=== PATIENT | female | born 1985 | race Caucasian/White ===

== ENCOUNTER 2017-04-15 09:37 | Day surgery (SDC) | payer OTHER ==
[2017-04-13 15:54] VITALS: BMI 44.6
[2017-04-15] MEDS ORDERED: ACETAMINOPHEN 325 MG TABLET (FP) PO PRN (10:22)
[2017-04-15] MEDS ORDERED: oxyCODONE HCL 5 MG TABLET PO PRN (10:22)
[2017-04-15] MEDS ORDERED: IBUPROFEN 400 MG TABLET (FP) PO PRN (10:22)
--- NOTE | 2017-04-15 10:29 | HP ---
Admitting History and Physical - Admission History of Present Illness: 32 yo with hx/o menorrhagia, s/p novasure ablation 03/2014 Reports menses returned this year in December Has had heavy, irregular bleeding + Dysmenorrhea + dyspareunia History Source: Patient - Past Medical History Cardiovascular: Yes: Other (hx/o pericarditis) Pulmonary: Yes: Asthma Gastrointestinal: Yes: GERD ...LMP: 02/16/17 ...: No Heme/Onc: No: Anemia Rheumatology: Yes: Fibromyalgia, Lupus Endocrine: Yes: Hypothyroidism - Past Surgical History Past Surgical History: Yes: Additional Past Surgical History: D&C Endometrial Ablation Left breast cyst - Smoking History Smoking history: Never smoked Have you smoked in the past 12 months: No Aproximately how many cigarettes per day: 0 If you are a former smoker, when did you quit?: 6YRS AGO - Alcohol/Substance Use Hx Alcohol Use: No History of Substance Use: reports: None - Social History ADL: Independent History of Recent Travel: No Home Medications - Allergies Allergies/Adverse Reactions: Allergies Allergy/AdvReac Type Severity Reaction Status Date / Time shellfish derived Allergy Severe Swelling Verified 08/09/16 17:01 ibuprofen [From Motrin] Allergy Mild Swelling Verified 08/09/16 17:01 codeine Allergy Hives Verified 08/09/16 17:01 - Home Medications Home Medications: Ambulatory Orders Colchicine [Colcrys -] 0.6 mg PO DAILY #7 tablet 11/22/15 Amitriptyline HCl [Elavil -] 25 mg PO HS 04/13/17 Gabapentin [Neurontin] 100 mg PO Q8H 04/13/17 Hydroxychloroquine Sulfate [Plaquenil] 200 mg PO BID 04/13/17 Topiramate 25 mg PO HS 04/13/17 Family Disease History - Family Disease History Family History: Denies Review of Systems - Review of Systems Constitutional: reports: No Symptoms Gastrointestinal: reports: No Symptoms Genitourinary: reports: No Symptoms Musculoskeletal: reports: No Symptoms Neurological: reports: No Symptoms Endocrine: reports: No Symptoms Psychiatric: reports: No Symptoms Physical Examination Constitutional: Yes: Well Nourished, No Distress, Calm Cardiovascular: Yes: Regular Rate and Rhythm Respiratory: Yes: Regular, CTA Bilaterally Gastrointestinal: Yes: Normal Bowel Sounds, Soft Edema: No Neurological: Yes: Alert, Oriented Psychiatric: Yes: Alert, Oriented Imaging - Results Ultrasound: Image Reviewed Assessment/Plan 32 yo with hx/o menorrhagia, irregular menses for dilation and curettage 1. Consents reviewed and signed 2. Preop labs reviewed 3. No antibiotics indicated 4. Will proceed to OR
[2017-04-15] MEDS ORDERED: MIDAZOLAM HCL 2 MG/2 ML SINGLE DOSE VIAL ONE (14:10)
[2017-04-15] MEDS ORDERED: ROCURONIUM BROMIDE 50 MG/5 ML VIAL ONE (15:04)
[2017-04-15] MEDS ORDERED: SUCCINYLCHOLINE CHLORIDE 200 MG/10 ML VIAL ONE (15:31)
--- NOTE | 2017-04-15 15:45 | OP ---
Operative Note - Note: Operative Date: 04/15/17 Pre-Operative Diagnosis: heavy irregular menses Operation: hysteroscopy, dilation and curettage Findings: anteflexed uterus, normal appearing endometrium Post-Operative Diagnosis: Same as Pre-op Surgeon: Caitlin Maldonado Anesthesiologist/GRADUATE NURSE: Sarika Gallagher Anesthesia: General Specimens Removed: endometrial curetting Estimated Blood Loss (mls): 5 Fluid Volume Replaced (mls): 600 Operative Report Dictated: Yes
[2017-04-15] MEDS ORDERED: DEXAMETHASONE SOD PHOSPHATE 4 MG/1 ML VIAL IVPUSH ONE (15:51)
[2017-04-15] MEDS ORDERED: ONDANSETRON 4 MG/2 ML VIAL IVPUSH PRN (15:51)
[2017-04-15] MEDS ORDERED: ONDANSETRON 4 MG/2 ML VIAL ONE (15:51)
[2017-04-15] MEDS ORDERED: LACTATED RINGERS SOLUTION 1,000 ML IV SCH (16:00)
--- NOTE | 2017-04-15 16:11 | OP ---
DATE OF OPERATION: 04/15/2017 ATTENDING PHYSICIAN: Caitlin Maldonado MD PREOPERATIVE DIAGNOSIS: Menorrhagia, irregular menses. POSTOPERATIVE DIAGNOSIS: Menorrhagia, irregular menses. PROCEDURE PERFORMED: Hysteroscopy with dilation and curettage. ANESTHESIA: Dr. Renata Clarke. INDICATIONS: The patient is a 32-year-old 2 para 2 with history of irregular bleeding and menorrhagia status post NovaSure ablation approximately 2 years ago with recurrence of bleeding. She was counseled regarding medical and surgical management and she opted for surgical management with hysteroscopy and D and C. Risks, benefits, alternatives and complications were discussed including infection, bleeding, damage to surrounding organs such as bowel, bladder and uterine perforation. She expressed understanding. PROCEDURE IN DETAIL: She was brought to the operating room. When anesthesia was found to be adequate the patient was prepped and draped in the usual sterile fashion. She was placed in the dorsal lithotomy position using [place] stirrups. A weighted speculum was placed in the posterior portion of the patient's vagina and anterior lip of the cervix was grasped using a single-tooth tenaculum. The cervix was gently dilated to accommodate a size 5.5 hysteroscope. The hysteroscope was placed. Normal appearing endometrium was noted. Bilateral ostia visualized. Hysteroscope was removed. Gentle sharp curetting was then performed. The patient tolerated the procedure well. All instruments were removed from the patient's vagina. The patient was awoken by Anesthesia and transferred to the recovery room in stable condition. ESTIMATED BLOOD LOSS: 5 mL. [place] [id number]
[2017-04-15] MEDS ORDERED: DEXAMETHASONE SOD PHOSPHATE 4 MG/1 ML VIAL ONE (16:17)
[2017-04-15 18:02] VITALS: TEMP 98
[2017-04-15 20:37] VITALS: BP 109/60; PULSE 92
--- NOTE | 2017-04-17 11:13 | PATH ---
Surgical Pathology Report Patient Name: CASSIE MONTOYA [facility]. Rec. #: [id number] /Age/Gender: 1985 (Age: 32) / F Account: [id number] Location: [facility] SURGICAL Taken: 04/15/2017 Received: 04/16/2017 Reported: 04/17/2017 Physicians: Caitlin Maldonado Specimen(s) Received ENDOMETRIAL CURETTINGS Clinical History Menorrhagia Final Diagnosis ENDOMETRIUM, CURETTING: DISORDERED PROLIFERATIVE ENDOMETRIUM WITH AREAS OF STROMAL AND GLANDULAR BREAKDOWN. Electronically Signed Nagi Alvarez M.D. Gross Description Received in formalin labeled "endometrial curettings," is a 1.4 x 1.2 x 0.3 cm aggregate of red-brown soft tissue fragments. The formalin is filtered and the specimen is entirely submitted in one cassette. /04/16/2017 [facility]04/16/2017
== END 2017-04-15 18:40 | disposition home or self-care (01) ==
LOC: JASU-SURG 09:37
PROVIDERS: ATTEND Obstetrics & Gynecology
PROC: 0UDB8ZX Extraction of Endometrium, Via Natural or Artificial Opening Endoscopic, Diagnostic (ICD-10-PCS; principal; 2017-04-15 12:00)
DX: N92.0 Excessive and frequent menstruation with regular cycle (principal)
CPT/HCPCS: 84703; 88305-TC; 94760